=== PATIENT | male | born 1995 | race Caucasian/White ===

== ENCOUNTER 2016-12-04 23:04 | Emergency (ER) | payer OTHER ==
[2016-12-04 23:08] VITALS: BP 144/95; PULSE 101; BMI 32.1
[2016-12-04] MEDS ORDERED: KETOROLAC TROMETHAMINE 60 MG/2 ML VIAL IVPUSH ONE (23:43)
[2016-12-04] MEDS ORDERED: diazePAM 5 MG TABLET PO ONE (23:44)
--- NOTE | 2016-12-04 23:44 | PDOC ---
History of Present Illness - General Chief Complaint: Injury Stated Complaint: INJURY Time Seen by Provider: 12/04/16 23:16 - History of Present Illness Initial Comments: 12/04/16 23:44 CHIEF COMPLAINT: HISTORY OF PRESENT ILLNESS: 21 yo M with hx of opiate abuse presents to ED with back pain x 2 weeks, worse today after lifting weights. Patient states he has a history of this back pain that "gets really bad sometimes." He reports the pain is localized to the left lower back and radiates down his left leg. Patient denies any loss of sensation or numbness to his legs bilaterally, denies any loss of bowel or bladder function. No recent travel or sick contacts. PAST MEDICAL HISTORY: Denies past medical history FAMILY HISTORY: Denies SOCIAL HISTORY: Hx of opiate abuse SURGICAL HISTORY: Denies ALLERGIES: No known drug allergies REVIEW OF SYSTEMS General/Constitutional: Denies fever or chills. Denies weakness, weight change. HEENT: Denies change in vision. Denies ear pain or discharge. Denies sore throat. Cardiovascular: Denies chest pain or shortness of breath. Respiratory: Denies cough, wheezing, or hemoptysis. Gastrointestinal: Denies nausea, vomiting, diarrhea or constipation. Denies rectal bleeding. Genitourinary: Denies dysuria, frequency, or change in urination. Musculoskeletal: Left lower back pain, radiating down leg. Skin and breasts: Denies rash or easy bruising. Neurologic: Denies headache, vertigo, loss of consciousness, or loss of sensation. PHYSICAL EXAM General Appearance: Well-appearing, appropriately dressed. No apparent distress , no intoxication. HEENT: EOMI, PERRLA, normal ENT inspection, normal voice, TMs normal, pharynx normal. No conjunctival pallor. No photophobia, scleral icterus. Neck: Supple. Trachea midline. No tenderness, rigidity, carotid bruit, stridor , lymphadenopathy, or thyromegaly. Respiratory/Chest: Lungs CTAB. No shortness of breath, chest tenderness, respiratory distress, accessory muscle use. No crackles, rales, rhonchi, stridor , wheezing, dullness Cardiovascular: RRR. S1, S2. No JVD, murmur, bradycardia, tachycardia. Vascular Pulses: Dorsalis-Pedis (R): 2+, Dorsalis-Pedis (L): 2+ Gastrointestinal/Abdominal: Normal bowel sounds. Abdomen soft, non-distended. No tenderness or rebound tenderness. No organomegaly, pulsatile mass, guarding , hernia, hepatomegaly, splenomegaly. Lymphatic: No adenopathy, tenderness. Musculoskeletal/Extremities: Normal inspection. FROM of all extremities, normal capillary refill. Pelvis Stable. No CVA tenderness. No tenderness to extremities, pedal edema, swelling, erythema or deformity. Integumentary: Appropriate color, dry, warm. No cyanosis, erythema, jaundice or rash Neurologic: skinner pelts II-XII intact. Fully oriented, alert. Appropriate mood/affect. Motor strength 5/5. No appreciable EOM palsy, facial droop or sensory deficit. Past History - Past Medical History Allergies/Adverse Reactions: Allergies Allergy/AdvReac Type Severity Reaction Status Date / Time No Known Allergies Allergy Verified 12/04/16 23:06 Home Medications: Ambulatory Orders Cyclobenzaprine HCl [Flexeril 10 mg] 10 mg PO TID PRN #12 tablet 12/05/16 Naproxen 250 mg PO BID #20 tablet 12/05/16 Psychiatric Problems: Yes (suicide attempts) - Psycho/Social/Smoking Cessation Hx Anxiety: No Suicidal Ideation: No Smoking Status: Yes Smoking History: Current every day smoker Number of Cigarettes Smoked Daily: 2 Information on smoking cessation initiated: No Hx Alcohol Use: No Substance Use Type: None Trauma Specific PMHX - Complaint Specific PMHX Back Injury: Yes *Physical Exam - Vital Signs Last Vital Signs Temp Pulse Resp BP Pulse Ox 101 H 18 144/95 100 12/04/16 23:06 12/04/16 23:06 12/04/16 23:06 12/04/16 23:06 Medical Decision Making - Medical Decision Making 12/05/16 00:52 21 yo M with hx of opiate abuse presents to ED with left lower back pain radiating to L leg. -Toradol 60 mg IM Patient reassessed, states his lower back pain is better but he still has a lot of pain to his left side. -UA -Cyclobenzaprine Patient's pain most likely musculoskeletal in nature due to recent physical activity and sudden onset after specified activity. Will discharge to home with muscle relaxant and NSAIDs. -naproxen 250 bid -cyclobenzaprine 10 mg qhs PRN muscle spasm Advised patient to take medication as prescribed and f/u with orthopedics for possible MRI. Advised patient of signs and symptoms for return to ER; patient verbalized understanding and agrees to plan. *DC/Admit/Observation/Transfer Diagnosis at time of Disposition: Sciatica of left side Back strain Qualifiers: Encounter type: initial encounter Qualified Code(s): S39.012A - Strain of muscle, fascia and tendon of lower back, initial encounter - Discharge Dispostion Disposition: HOME Condition at time of disposition: Stable Admit: No - Prescriptions Prescriptions: Cyclobenzaprine HCl [Flexeril 10 mg] 10 mg PO TID PRN #12 tablet PRN Reason: Back Pain Naproxen 250 mg PO BID #20 tablet - Referrals Referrals: Mt Blanco MD [Staff Physician] - - Patient Instructions Printed Discharge Instructions: DI for Back Pain With Sciatica Additional Instructions: As discussed, you need to follow up orthopedics for a possible MRI for further evaluation and management of your back pain. If you experience any numbness or loss of sensation to your legs, loss of bowel or bladder function, nausea, vomiting, diarrhea or any new or worsening symptoms, please return to the ER.
[2016-12-04] MEDS ORDERED: KETOROLAC TROMETHAMINE 60 MG/2 ML VIAL IM ONE (23:57)
--- NOTE | 2016-12-04 23:58 | PDOC ---
[id number] 100 12/04/16 23:06 12/04/16 23:06 12/04/16 23:06 12/04/16 23:06 - Physical Exam Comments: 12/04/16 23:58 The patient was examined by RADHA Mcclain under my direct supervision. I personally evaluated the patient. I concur with the above findings and the plan of care. *DC/Admit/Observation/Transfer Diagnosis at time of Disposition: Sciatica of left side, Back strain - Prescriptions Prescriptions: Cyclobenzaprine HCl [Flexeril 10 mg] 10 mg PO TID PRN #12 tablet PRN Reason: Back Pain Naproxen 250 mg PO BID #20 tablet - Referrals Referrals: Mt Blanco MD [Staff Physician] - - Patient Instructions Printed Discharge Instructions: DI for Back Pain With Sciatica Additional Instructions: As discussed, you need to follow up orthopedics for a possible MRI for further evaluation and management of your back pain. If you experience any numbness or loss of sensation to your legs, loss of bowel or bladder function, nausea, vomiting, diarrhea or any new or worsening symptoms, please return to the ER.
[2016-12-05] MEDS ORDERED: KETOROLAC TROMETHAMINE 60 MG/2 ML VIAL ONE
[2016-12-05] MEDS ORDERED: CYCLOBENZAPRINE HCL 10 MG TABLET (FP) PO ONE (00:35)
[2016-12-05] MEDS ORDERED: CYCLOBENZAPRINE HCL 10 MG TABLET (FP) ONE (00:41)
[2016-12-05 00:51] LABS: URINE APPEARANCE CLEAR; URINE BILIRUBIN NEGATIVE (NEGATIVE); URINE BLOOD NEGATIVE (NEGATIVE); URINE COLOR YELLOW; URINE GLUCOSE (UA) NEGATIVE (NEGATIVE); URINE KETONE NEGATIVE (NEGATIVE); URINE LEUK ESTERASE NEGATIVE (NEGATIVE); URINE NITRITE NEGATIVE (NEGATIVE); URINE PROTEIN NEGATIVE (NEGATIVE); URINE UROBILINOGEN NEGATIVE E.U./dl (0.2-1.0)
== END 2016-12-05 01:09 | disposition home or self-care (01) ==
LOC: JER 23:04
PROC: 3E0333Z Introduction of Anti-inflammatory into Peripheral Vein, Percutaneous Approach (ICD-10-PCS; principal; 2016-12-04)
DX: M54.32 Sciatica, left side (principal); S39.012A Strain of muscle, fascia and tendon of lower back, initial encounter; F17.210 Nicotine dependence, cigarettes, uncomplicated; F11.90 Opioid use, unspecified, uncomplicated
CPT/HCPCS: 81003; 99282-25

== ENCOUNTER 2017-06-03 17:16 | Inpatient (IN) | payer OTHER ==
[2017-06-03 20:15] VITALS: BMI 28.8
--- NOTE | 2017-06-03 20:15 | HP ---
COWS - Scale Resting Pulse: 1= [place] 81-100 Sweatin= Chills/Flushing Restless Observation: 3= Extraneous Movement Pupil Size: 0= Normal to Room Light Bone or Joint Aches: 2= Severe Diffuse Aches Runny Nose/ Eye Tearin= Runny Nose/Eyes GI Upset > 30mins: 2= Nausea/Diarrhea Tremor Observation: 2= Slight Tremor Visible Yawning Observation: 0= None Anxiety or Irritability: 2=Irritable/Anxious Goose Flesh Skin: 0=Smooth Skin COWS Score: 15 Admission [facility] Chief Complaint: withdrawal sx Allergies/Adverse Reactions: Allergies Allergy/AdvReac Type Severity Reaction Status Date / Time No Known Allergies Allergy Verified 06/03/17 20:04 History of Present Illness: 21 years old male with long history of heroin nicotine dependence, has gerd and chronic back and right knee pain and depression is admitted to detox Exam Limitations: No Limitations - Ebola screening Have you traveled outside of the country in the last 21 days: No (N) Have you had contact with anyone from an Ebola affected area: No Have you been sick,other than usual withdrawal symptoms: No Do you have a fever: No - Review of Systems Constitutional: Changes in sleep, Weight Stable EENT: reports: No Symptoms Reported Respiratory: reports: No Symptoms reported Cardiac: reports: No Symptoms Reported GI: reports: Nausea, Poor Fluid Intake, Indigestion, Abdominal cramping : reports: No Symptoms Reported Musculoskeletal: reports: Back Pain, Joint Pain, Muscle Pain, Neck Pain Integumentary: reports: No Symptoms Reported Neuro: reports: Tremors Endocrine: reports: No Symptoms Reported Hematology: reports: No Symptoms Reported Psychiatric: reports: Judgement Intact, Orientated x3, Depressed Other Systems: Reviewed and Negative Patient History - Patient Medical History Hx Anemia: No Hx Asthma: No Hx Chronic Obstructive Pulmonary Disease (COPD): No Hx Cancer: No Hx Cardiac Disorders: No Hx Congestive Heart Failure: No Hx Hypertension: No Hx Hypercholesterolemia: No Hx Pacemaker: No HX Cerebrovascular Accident: No Hx Seizures: No Hx Dementia: No Hx Diabetes: No Hx Gastrointestinal Disorders: Yes Hx Liver Disease: No Hx Genitourinary Disorders: No Hx Sexually Transmitted Disorders: No Hx Renal Disease (ESRD): No Hx Thyroid Disease: No Hx Human Immunodeficiency Virus (HIV): No Hx Hepatitis C: No Hx Depression: Yes Hx Suicide Attempt: Yes (cut self ) Hx Bipolar Disorder: No Hx Schizophrenia: No - Patient Surgical History Past Surgical History: Yes Other Surgical History: right knee skin graft 2004 Anesthesia Reaction: No - PPD History Previous Implant?: Yes Documented Results: Negative w/o proof Implanted On Prior [facility] Admission?: No PPD to be Administered?: Yes - Smoking Cessation Smoking history: Current every day smoker Have you smoked in the past 12 months: Yes Aproximately how many cigarettes per day: 15 Cigars Per Day: 0 Hx Chewing Tobacco Use: No Initiated information on smoking cessation: Yes 'Breaking Loose' booklet given: 06/03/17 - Substance & Tx. History Hx Alcohol Use: No Hx Substance Use: Yes Substance Use Type: Heroin Hx Substance Use Treatment: Yes (08/2016 [facility]) - Substances Abused Heroin Route: Inhalation Frequency: Daily Amount used: 15 bags Age of first use: 20 Date of Last Use: 06/03/17 Family Disease History - Family Disease History Family Disease History: Diabetes: Grandparent, Heart Disease: Grandparent Admission Physical Exam S - Vital Signs Vital Signs: Vital Signs - 24 hr 06/03/17 18:25 Temperature 98 F Pulse Rate 86 Respiratory 18 Rate Blood Pressure 136/80 - Physical General Appearance: Yes: Nourished, Appropriately Dressed, Mild Distress, Tremorous, Irritable, Sweating, Anxious HEENTM: Yes: Hearing grossly Normal, Normal ENT Inspection, Normocephalic, Normal Voice Respiratory: Yes: Chest Non-Tender, Lungs Clear, Normal Breath Sounds, No Respiratory Distress, No Accessory Muscle Use Neck: Yes: Supple, Trachea in good position Breast: Yes: Breasts Symetrical Cardiology: Yes: Regular Rhythm, Regular Rate, S1, S2 Abdominal: Yes: Non Tender, Soft, Increased Bowel Sounds Genitourinary: Yes: Within Normal Limits Back: Yes: Normal Inspection Musculoskeletal: Yes: full range of Motion, Gait Steady, Back pain, Muscle Pain Extremities: Yes: Normal Inspection, Normal Range of Motion, Non-Tender, Tremors Neurological: Yes: Fully Oriented, Alert, Motor Strength 5/5, Normal Response, Depressed Affect Integumentary: Yes: Warm Lymphatic: Yes: Within Normal Limits - Diagnostic (1) Opioid dependence with withdrawal Current Visit: Yes Status: Acute (2) Chronic back pain Current Visit: Yes Status: Chronic Qualifiers: Back pain location: low back pain Back pain laterality: left Sciatica presence: with sciatica Sciatica laterality: sciatica of left side Qualified Code(s): M54.42 - Lumbago with sciatica, left side; G89.29 - Other chronic pain (3) Chronic pain of right knee Current Visit: Yes Status: Chronic (4) Nicotine dependence Current Visit: Yes Status: Acute Qualifiers: Nicotine product type: cigarettes Substance use status: in withdrawal Qualified Code(s): F17.213 - Nicotine dependence, cigarettes, with withdrawal (5) GERD (gastroesophageal reflux disease) Current Visit: Yes Status: Chronic Qualifiers: Esophagitis presence: without esophagitis Qualified Code(s): K21.9 - Gastro-esophageal reflux disease without esophagitis (6) Depression (emotion) Current Visit: Yes Status: Suspected Qualifiers: Depression Type: dysthymia Qualified Code(s): F34.1 - Dysthymic disorder Cleared for Admission [facility] - Detox or Rehab [facility] Level of Care: Medically Managed Detox Regimen/Protocol: Methadone [facility] Breath Alcohol Content Breath Alcohol Content: 0 Vital Signs - Height Height: 5 ft 9 in - Weight Weight: 195 lb Weight Measurement Method: Standing Scale Body Mass Index (BMI): 28.8 - Bowel Function Bowel Movement: Yes Urine Drug Screen - Results Drug Screen Negative: No Urine Drug Screen Results: OPI-Opiates
[2017-06-03] MEDS ORDERED: ACETAMINOPHEN 325 MG TABLET (FP) PO PRN (20:18)
[2017-06-03] MEDS ORDERED: guaiFENesin/D-METHORPHAN HB 10 ML UNIT-DOSE CUPS PO PRN (20:18)
[2017-06-03] MEDS ORDERED: MENTHOL/PHENOL 1 EACH UD MM PRN (20:18)
[2017-06-03] MEDS ORDERED: NICOTINE POLACRILEX 4 MG GUM BC PRN (20:18)
[2017-06-03] MEDS ORDERED: P-EPHED 60MG/TRIPROLIDI 2.5MG TABLET PO PRN (20:18)
[2017-06-03] MEDS ORDERED: diphenhydrAMINE HCL 50 MG CAPSULE PO PRN (20:18)
[2017-06-03] MEDS ORDERED: MAGNESIUM HYDROX 2400MG/30ML ORAL SUSPENSION 30 ML CUP PO PRN (20:18)
[2017-06-03] MEDS ORDERED: MAGNESIUM CITRATE 300 ML BOTTLE PO PRN (20:18)
[2017-06-03] MEDS ORDERED: METHADONE HCL 10 MG TABLET (FOR DETOX USE ONLY) PO ONE ×2 (20:18→23:00)
[2017-06-03] MEDS ORDERED: LOPERAMIDE HCL 2 MG CAPSULE PO PRN (20:18)
[2017-06-03] MEDS ORDERED: MAG HYDROX/AL HYDROX/SIMETH 30 ML UNIT-DOSE CUP PO PRN (20:18)
[2017-06-03] MEDS: diazePAM 5 MG TABLET PO PRN (21:03)
[2017-06-03] MEDS: RANITIDINE HCL 150 MG TABLET (FP) PO SCH (22:20)
[2017-06-03] MEDS: THIAMINE HCL 100 MG TABLET (FP) PO SCH (22:21)
[2017-06-03] MEDS: CYCLOBENZAPRINE HCL 10 MG TABLET (FP) PO PRN (22:25)
[2017-06-04] MEDS: diazePAM 5 MG TABLET PO PRN ×5 (02:25→22:10)
[2017-06-04] MEDS: CYCLOBENZAPRINE HCL 10 MG TABLET (FP) PO PRN ×2 (06:25→14:39)
[2017-06-04 09:40] LABS: MCH 30.4 pg (25.7-33.7); MCHC 34.1 g/dl (32.0-35.9); MEAN CELL VOLUME 89.4 fl (80-96); MEAN PLT VOLUME 8.4 fl (7.5-11.1); PLATELET COUNT 265 K/MM3 (134-434); RDW 12.6 % (11.9-15.9); WHITE BLOOD COUNT 9.2 K/mm3 (4.0-10.0)
[2017-06-04 09:56] LABS: ALBUMIN 4.2 g/dl (3.4-5.0); ALK PHOS 70 U/L (45-117); ANION GAP 7 (8-16); BILIRUBIN,TOTAL 0.8 mg/dL (0.2-1.0); CALCIUM 9.3 mg/dL (8.5-10.1); CO2 29 mmol/L (21-32); CREATININE 0.9 mg/dL (0.7-1.3); GLUCOSE,RANDOM 109 mg/dL (74-106); SGOT/AST 45 U/L (15-37); SGPT/ALT 100 U/L (12-78); TOT PROT 7.4 g/dl (6.4-8.2)
[2017-06-04] MEDS ORDERED: METHADONE HCL 10 MG TABLET (FOR DETOX USE ONLY) PO ONE (10:00)
--- NOTE | 2017-06-04 10:24 | EKG ---
Test Reason : Blood Pressure : / mmHG Vent. Rate : 085 BPM Atrial Rate : 085 BPM P-R Int : 126 ms QRS Dur : 088 ms QT Int : 346 ms P-R-T Axes : 052 065 009 degrees QTc Int : 411 ms NORMAL SINUS RHYTHM NORMAL ECG WHEN COMPARED WITH ECG OF 30-JUL-2016 00:17, NO SIGNIFICANT CHANGE WAS FOUND Confirmed by ERIKA OLIVO MD ([id number]) on 06/04/2017 10:24:33 AM Referred By: Confirmed By:ERIKA OLIVO MD
[2017-06-04] MEDS: LIDOCAINE 5% TOPICAL PATCH TP SCH (10:38)
[2017-06-04] MEDS: PRENATAL VITAMINS W/ FOLIC ACID TABLET (FP) PO SCH (10:38)
[2017-06-04] MEDS: RANITIDINE HCL 150 MG TABLET (FP) PO SCH ×2 (10:38→22:10)
[2017-06-04] MEDS: NICOTINE 21 MG/24 HOURS TOPICAL PATCH TD SCH (10:39)
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
--- NOTE | 2017-06-04 12:44 | PN ---
S COWS - Scale Resting Pulse: 0= [place] 80 or Below Sweatin= Chills/Flushing Restless Observation: 3= Extraneous Movement Pupil Size: 2= Moderately Dilated Bone or Joint Aches: 4=Acute Joint/Muscle Pain Runny Nose/ Eye Tearin= None GI Upset > 30mins: 1= Stomach Cramp Tremor Observation of Outstretched Hands: 2= Slight Tremor Visible Yawning Observation: 1= 1-2x During Session Anxiety or Irritability: 2=Irritable/Anxious Goose Flesh Skin: 0=Smooth Skin COWS Score: 16 [facility] Progress Note (SOAP) Subjective: ANXIETY,TREMORS, SWEATS,MUSCLE ACHES, FATIGUE, INTERMITTENT SLEEP. Objective: 06/04/17 12:42 Vital Signs Temperature 97.2 F L 06/04/17 10:01 Pulse Rate 66 06/04/17 10:01 Respiratory Rate 18 06/04/17 10:01 Blood Pressure 132/79 06/04/17 10:01 O2 Sat by Pulse Oximetry (%) Laboratory Last Values WBC 9.2 K/mm3 (4.0-10.0) D 06/04/17 07:00 RBC 4.67 M/mm3 (4.00-5.60) 06/04/17 07:00 Hgb 14.2 GM/dL (11.7-16.9) 06/04/17 07:00 Hct 41.8 % (35.4-49) 06/04/17 07:00 MCV 89.4 fl (80-96) 06/04/17 07:00 MCH 30.4 pg (25.7-33.7) 06/04/17 07:00 MCHC 34.1 g/dl (32.0-35.9) 06/04/17 07:00 RDW 12.6 % (11.9-15.9) 06/04/17 07:00 Plt Count 265 K/MM3 (134-434) 06/04/17 07:00 MPV 8.4 fl (7.5-11.1) 06/04/17 07:00 Sodium 138 mmol/L (136-145) 06/04/17 07:00 Potassium 3.7 mmol/L (3.5-5.1) 06/04/17 07:00 Chloride 102 mmol/L (98-107) 06/04/17 07:00 Carbon Dioxide 29 mmol/L (21-32) 06/04/17 07:00 Anion Gap 7 (8-16) L 06/04/17 07:00 BUN 11 mg/dL (7-18) 06/04/17 07:00 Creatinine 0.9 mg/dL (0.7-1.3) 06/04/17 07:00 Creat Clearance w eGFR > 60 (>60) 06/04/17 07:00 Random Glucose 109 mg/dL (74-106) H 06/04/17 07:00 Calcium 9.3 mg/dL (8.5-10.1) 06/04/17 07:00 Total Bilirubin 0.8 mg/dL (0.2-1.0) D 06/04/17 07:00 AST 45 U/L (15-37) H D 06/04/17 07:00 ALT 100 U/L (12-78) H D 06/04/17 07:00 Alkaline Phosphatase 70 U/L (45-117) 06/04/17 07:00 Total Protein 7.4 g/dl (6.4-8.2) 06/04/17 07:00 Albumin 4.2 g/dl (3.4-5.0) 06/04/17 07:00 RPR Titer Nonreactive (NONREACTIVE) 06/04/17 07:00 Assessment: 06/04/17 12:43 WITHDRAWAL SX Plan: CONTINUE DETOX
[2017-06-04] MEDS ORDERED: ZOLPIDEM TARTRATE 10 MG TABLET (PARK CARE ONLY) PO SCH (22:00)
[2017-06-04] MEDS ORDERED: LIDOCAINE PATCH REMOVAL MC SCH (22:00)
[2017-06-04] MEDS: THIAMINE HCL 100 MG TABLET (FP) PO SCH (22:10)
[2017-06-05] MEDS: diazePAM 5 MG TABLET PO PRN ×2 (02:30→06:39)
[2017-06-05] MEDS: CYCLOBENZAPRINE HCL 10 MG TABLET (FP) PO PRN (05:07)
[2017-06-05 08:21] VITALS: BP 129/81; PULSE 59; TEMP 97.4
[2017-06-05] MEDS ORDERED: METHADONE HCL 5 MG TABLET (FOR DETOX USE ONLY) PO ONE (10:00)
[2017-06-05] MEDS: LIDOCAINE 5% TOPICAL PATCH TP SCH (10:31)
[2017-06-05] MEDS: RANITIDINE HCL 150 MG TABLET (FP) PO SCH (10:32)
[2017-06-05] MEDS: PRENATAL VITAMINS W/ FOLIC ACID TABLET (FP) PO SCH (10:32)
[2017-06-05] MEDS: NICOTINE 21 MG/24 HOURS TOPICAL PATCH TD SCH (10:32)
--- NOTE | 2017-06-05 11:29 | DS ---
[facility] Detox Discharge Summary Admission Date: 06/03/17 Discharge Date: 06/05/17 - History Present History: Opioid Dependence Additional Comments: PT DECLINED TO CONTINUE/COMPLETE DETOX FOR PERSONAL REASONS/LACK OF INSIGHT. SPOKE TO PATIENT EXPLAINING THE NEED TO REMAIN IN TREATMENT AND SEEK SOBRIETY. PT HAS VERY LIMITED INSIGHT INTO HIS ADDICTION AND NOT READY FOR TREATMENT AT THIS TIME. PT IS ALERT O X 3. NAD. PT SIGNED OUT AMA. Pertinent Past History: GERD CHRONIC BACK PAIN - Physical Exam Results Vital Signs: Vital Signs Temperature 97.4 F L 06/05/17 05:00 Pulse Rate 59 L 06/05/17 05:00 Respiratory Rate 18 06/05/17 05:00 Blood Pressure 129/81 06/05/17 05:00 O2 Sat by Pulse Oximetry (%) Pertinent Admission Physical Exam Findings: WITHDRAWAL SX Laboratory Last Values WBC 9.2 K/mm3 (4.0-10.0) D 06/04/17 07:00 RBC 4.67 M/mm3 (4.00-5.60) 06/04/17 07:00 Hgb 14.2 GM/dL (11.7-16.9) 06/04/17 07:00 Hct 41.8 % (35.4-49) 06/04/17 07:00 MCV 89.4 fl (80-96) 06/04/17 07:00 MCH 30.4 pg (25.7-33.7) 06/04/17 07:00 MCHC 34.1 g/dl (32.0-35.9) 06/04/17 07:00 RDW 12.6 % (11.9-15.9) 06/04/17 07:00 Plt Count 265 K/MM3 (134-434) 06/04/17 07:00 MPV 8.4 fl (7.5-11.1) 06/04/17 07:00 Sodium 138 mmol/L (136-145) 06/04/17 07:00 Potassium 3.7 mmol/L (3.5-5.1) 06/04/17 07:00 Chloride 102 mmol/L (98-107) 06/04/17 07:00 Carbon Dioxide 29 mmol/L (21-32) 06/04/17 07:00 Anion Gap 7 (8-16) L 06/04/17 07:00 BUN 11 mg/dL (7-18) 06/04/17 07:00 Creatinine 0.9 mg/dL (0.7-1.3) 06/04/17 07:00 Creat Clearance w eGFR > 60 (>60) 06/04/17 07:00 Random Glucose 109 mg/dL (74-106) H 06/04/17 07:00 Calcium 9.3 mg/dL (8.5-10.1) 06/04/17 07:00 Total Bilirubin 0.8 mg/dL (0.2-1.0) D 06/04/17 07:00 AST 45 U/L (15-37) H D 06/04/17 07:00 ALT 100 U/L (12-78) H D 06/04/17 07:00 Alkaline Phosphatase 70 U/L (45-117) 06/04/17 07:00 Total Protein 7.4 g/dl (6.4-8.2) 06/04/17 07:00 Albumin 4.2 g/dl (3.4-5.0) 06/04/17 07:00 RPR Titer Nonreactive (NONREACTIVE) 06/04/17 07:00 Hepatitis C Antibody <0.1 s/co ratio (0.0-0.9) 06/03/17 07:00 UA RESULT STILL PENDING AT THIS TIME. - Treatment Hospital Course: Discharged Condition Good - Medication Discharge Medications: Ambulatory Orders Cyclobenzaprine HCl [Flexeril 10 mg] 10 mg PO TID PRN #12 tablet 12/05/16 Naproxen 250 mg PO BID #20 tablet 12/05/16 - Diagnosis (1) Opioid dependence with withdrawal Status: Acute (2) Chronic back pain Status: Chronic Qualifiers: Back pain location: low back pain Back pain laterality: left Sciatica presence: with sciatica Sciatica laterality: sciatica of left side Qualified Code(s): M54.42 - Lumbago with sciatica, left side; G89.29 - Other chronic pain (3) Chronic pain of right knee Status: Chronic (4) GERD (gastroesophageal reflux disease) Status: Chronic Qualifiers: Esophagitis presence: without esophagitis Qualified Code(s): K21.9 - Gastro-esophageal reflux disease without esophagitis (5) Sciatica of left side Status: Chronic - AMA Did Patient Leave Against Medical Advice: Yes (AMA)
[2017-06-05 16:43] LABS: URINE APPEARANCE CLEAR; URINE BILIRUBIN NEGATIVE (NEGATIVE); URINE BLOOD NEGATIVE (NEGATIVE); URINE COLOR STRAW; URINE GLUCOSE (UA) NEGATIVE (NEGATIVE); URINE KETONE NEGATIVE (NEGATIVE); URINE LEUK ESTERASE NEGATIVE (NEGATIVE); URINE NITRITE NEGATIVE (NEGATIVE); URINE PROTEIN NEGATIVE (NEGATIVE); URINE UROBILINOGEN NEGATIVE mg/dL (0.2-1.0)
[2017-06-06] MEDS ORDERED: METHADONE HCL 5 MG TABLET (FOR DETOX USE ONLY) PO ONE (10:00)
[2017-06-07] MEDS ORDERED: METHADONE HCL 10 MG TABLET (FOR DETOX USE ONLY) PO ONE (10:00)
[2017-06-08] MEDS ORDERED: METHADONE HCL 5 MG TABLET (FOR DETOX USE ONLY) PO ONE (06:00)
== END 2017-06-05 11:18 | disposition left against medical advice (07) | DRG 770 ==
LOC: YASAS 17:16 → Y3N 20:06
PROVIDERS: ADMIT Internal Medicine; ATTEND Internal Medicine
PROC: HZ2ZZZZ Detoxification Services for Substance Abuse Treatment (ICD-10-PCS; principal; 2017-06-03)
DX: F11.23 Opioid dependence with withdrawal (principal); F10.230 Alcohol dependence with withdrawal, uncomplicated; F17.210 Nicotine dependence, cigarettes, uncomplicated; F34.1 Dysthymic disorder; G47.00 Insomnia, unspecified; K21.9 Gastro-esophageal reflux disease without esophagitis; M54.42 Lumbago with sciatica, left side; G89.29 Other chronic pain; M25.562 Pain in left knee
CPT/HCPCS: 36415; 80053; 81003; 85027; 86593; 86803; 93005; 93010

== ENCOUNTER 2020-11-17 13:13 | Emergency (ER) | payer OTHER ==
[2020-11-17 13:27] VITALS: BP 157/90; PULSE 70; TEMP 98.1; BMI 31.0
[2020-11-17] MEDS ORDERED: KETOROLAC TROMETHAMINE 30 MG/1 ML VIAL IVPUSH ONE (14:08)
[2020-11-17] MEDS ORDERED: ONDANSETRON 4 MG/2 ML VIAL IVPUSH ONE (14:08)
[2020-11-17] MEDS ORDERED: SODIUM CHLORIDE 1,000 ML IV STA (14:08)
[2020-11-17] MEDS ORDERED: KETOROLAC TROMETHAMINE 30 MG/1 ML VIAL ONE (14:26)
[2020-11-17] MEDS ORDERED: ONDANSETRON 4 MG/2 ML VIAL ONE (14:26)
[2020-11-17 14:28] LABS: BASO % 0.5 % (0-2.0); EOS % 0.8 % (0-4.5); HEMATOCRIT 41.6 % (35.4-49); HEMOGLOBIN 13.8 GM/dL (11.7-16.9); LYMPH % 14.3 % (8-40); MCH 30.1 pg (25.7-33.7); MCHC 33.1 g/dl (32.0-35.9); MEAN CELL VOLUME 90.8 fl (80-96); MEAN PLT VOLUME 8.4 fl (7.5-11.1); MONO % 6.1 % (3.8-10.2); NEUT % 78.3 % (42.8-82.8); PLATELET COUNT 348 K/MM3 (134-434); RBC 4.58 M/mm3 (4.00-5.60); RDW 13.2 % (11.9-15.9); WHITE BLOOD COUNT 12.6 K/mm3 (4.0-10.0)
[2020-11-17 14:50] LABS: CHLORIDE 100 mmol/L (98-107); SODIUM 129 mmol/L (136-145)
[2020-11-17 14:51] LABS: CALCIUM 9.8 mg/dL (8.5-10.1)
[2020-11-17 14:52] LABS: ALBUMIN 3.9 g/dl (3.4-5.0); BLOOD UREA NITROGEN 16.3 mg/dL (7-18); CO2 31 mmol/L (21-32); GLUCOSE,RANDOM 94 mg/dL (74-106)
[2020-11-17 14:55] LABS: CREATININE 1.3 mg/dL (0.55-1.3)
[2020-11-17 14:56] LABS: BILIRUBIN,TOTAL 0.7 mg/dL (0.2-1)
[2020-11-17 14:57] LABS: TOT PROT 8.7 g/dl (6.4-8.2)
[2020-11-17 14:58] LABS: ALK PHOS 100 U/L (45-117)
[2020-11-17 14:59] LABS: ANION GAP -2 MMOL/L (8-16); SGOT/AST 141 U/L (15-37); SGPT/ALT 169 U/L (13-61)
[2020-11-17 15:01] LABS: POTASSIUM > 10.0 mmol/L (3.5-5.1)
[2020-11-17 16:06] LABS: POTASSIUM 4.4 mmol/L (3.5-5.1)
[2020-11-17 16:07] LABS: CALCIUM 9.8 mg/dL (8.5-10.1)
[2020-11-17 16:08] LABS: ALBUMIN 4.2 g/dl (3.4-5.0); BLOOD UREA NITROGEN 14.9 mg/dL (7-18)
[2020-11-17 16:11] LABS: CREATININE 1.4 mg/dL (0.55-1.3)
[2020-11-17 16:13] LABS: BILIRUBIN,TOTAL 0.5 mg/dL (0.2-1); TOT PROT 8.2 g/dl (6.4-8.2)
[2020-11-17] MEDS ORDERED: TAMSULOSIN HCL 0.4 MG CAP PO ONE (17:32)
[2020-11-17] MEDS ORDERED: TAMSULOSIN HCL 0.4 MG CAP ONE (17:49)
[2020-11-17 18:07] LABS: EPI CELLS 19 /uL (0-25.1); HYALINE CASTS 4 /uL (0-3.1); PH,URINE 5.5 (5.0-8.0); URINE APPEARANCE TURBID; URINE BACTERIA 106 /uL (0-1359); URINE BILIRUBIN 2+ (NEGATIVE); URINE COLOR ORANGE; URINE GLUCOSE (UA) NEGATIVE (NEGATIVE); URINE KETONE TRACE (NEGATIVE); URINE LEUK ESTERASE 1+ (NEGATIVE); URINE NITRITE NEGATIVE (NEGATIVE); URINE PROTEIN 2+ (NEGATIVE); URINE RBC 959 /uL (0-23.9); URINE WBC 60 /uL (0-25.8)
[2020-11-17 19:12] LABS: URINE CRYSTALS CALCIUM OXALATE /hpf
== END 2020-11-17 17:50 | disposition home or self-care (01) ==
LOC: JER 13:13
PROC: 3E0333Z Introduction of Anti-inflammatory into Peripheral Vein, Percutaneous Approach (ICD-10-PCS; principal; 2020-11-17)
PROC: 3E033GC Introduction of Other Therapeutic Substance into Peripheral Vein, Percutaneous Approach (ICD-10-PCS; 2020-11-17)
PROC: 3E0337Z Introduction of Electrolytic and Water Balance Substance into Peripheral Vein, Percutaneous Approach (ICD-10-PCS; 2020-11-17)
DX: N23 Unspecified renal colic (principal)
CPT/HCPCS: 36415; 74176-TC; 80053; 81003; 85025; 87086; 99285-25

== ENCOUNTER 2021-09-10 11:57 | Emergency (ER) | payer OTHER ==
[2021-09-10 12:27] VITALS: TEMP 98.6; BMI 29.5
[2021-09-10 13:41] LABS: ALBUMIN 4.9 g/dl (3.4-5.0); BILIRUBIN,TOTAL 0.7 mg/dl (0.2-1); CALCIUM 10.1 mg/dl (8.5-10); CREATININE 1.3 mg/dl (0.55-1.3); TOT PROT 8.4 g/dl (6.4-8.2)
[2021-09-10 13:49] LABS: EPITHELIAL CELLS FEW /hpf; URINE HYALINE CAST 0-1 /lpf; URINE MUCUS 1+
[2021-09-10 15:20] LABS: BASO % 0.3 % (0-2.0); EOS % 0.3 % (0-4.5); HEMATOCRIT 39.7 % (35.4-49); HEMOGLOBIN 13.6 GM/dL (11.7-16.9); LYMPH % 12.2 % (8-40); MCHC 34.4 g/dl (32.0-35.9); MEAN CELL VOLUME 90.3 fl (80-96); MEAN PLT VOLUME 8.7 fl (7.5-11.1); MONO % 7.8 % (3.8-10.2); NEUT % 79.4 % (42.8-82.8); PLATELET COUNT 324 10^3/uL (134-434); RDW 12.9 % (11.9-15.9); WHITE BLOOD COUNT 9.9 K/mm3 (4.0-10.0)
[2021-09-10 16:12] VITALS: BP 145/81; PULSE 75
== END 2021-09-10 17:21 | disposition home or self-care (01) ==
LOC: FER 11:57
PROC: 3E0333Z Introduction of Anti-inflammatory into Peripheral Vein, Percutaneous Approach (ICD-10-PCS; principal; 2021-09-10)
PROC: 3E033GC Introduction of Other Therapeutic Substance into Peripheral Vein, Percutaneous Approach (ICD-10-PCS; 2021-09-10)
DX: R11.2 Nausea with vomiting, unspecified (principal); M79.10 Myalgia, unspecified site; R30.0 Dysuria; N13.30 Unspecified hydronephrosis
CPT/HCPCS: 36415; 71046-TC-FY; 76775-TC; 80053; 81003; 81015; 85025; 87086; 87804; 99285-25; C9803; U0003; U0005

== ENCOUNTER 2024-04-06 10:30 | Inpatient (IN) | payer OTHER ==
[2024-04-06 12:02] LABS: BASO % 0.2 % (0-2.0); EOS % 2.1 % (0-4.5); HEMATOCRIT 40.5 % (35.4-49); HEMOGLOBIN 13.4 GM/dL (11.7-16.9); LYMPH % 10.3 % (8-40); MCH 29.3 pg (25.7-33.7); MEAN CELL VOLUME 88.7 fl (80-96); MEAN PLT VOLUME 7.7 fl (7.5-11.1); MONO % 10.7 % (3.8-10.2); NEUT % 76.7 % (42.8-82.8); PLATELET COUNT 276 10^3/uL (134-434); RBC 4.56 M/mm3 (4.00-5.60); RDW 13.6 % (11.9-15.9); WHITE BLOOD COUNT 13.2 K/mm3 (4.0-10.0)
[2024-04-06 12:36] LABS: POTASSIUM 4.4 mmol/L (3.5-5.1)
[2024-04-06 12:38] LABS: ALBUMIN 3.5 g/dl (3.4-5.0); BLOOD UREA NITROGEN 7.6 mg/dL (7-18); CALCIUM 9.2 mg/dL (8.5-10.1)
[2024-04-06 12:42] LABS: CREATININE 0.9 mg/dL (0.55-1.3)
[2024-04-06 12:43] LABS: BILIRUBIN,TOTAL 0.4 mg/dL (0.2-1); TOT PROT 7.2 g/dl (6.4-8.2)
[2024-04-06 13:26] LABS: ERYTHROCYTE SEDIMENTATION RATE 17 mm/hr (0-10)
[2024-04-06] MEDS ORDERED: PIPERACILLIN/TAZOB 4.5 GM 4.5 GM/100 ML BAG IVPB ONE (14:10)
[2024-04-06] MEDS: PIPERACILLIN/TAZOB 4.5 GM 4.5 GM in DEXTROSE 5%-WATER 100 ML IVPB ONE (14:20)
[2024-04-06] MEDS ORDERED: VANCOMYCIN 1 GRAM (PRE-DOCKED) 1,000 MG/250 ML BAG IVPB ONE (15:21)
[2024-04-06] MEDS: VANCOMYCIN 1,000 MG in DEXTROSE 5%-WATER - 250 ML IVPB ONE (15:29)
[2024-04-06] MEDS ORDERED: VANCOMYCIN PREMIX 1.5 GM 1,500 MG/300 ML BAG IVPB SCH ×2 (21:30→22:45)
[2024-04-06] MEDS ORDERED: HEPARIN NA (PORCINE) 5,000 UNITS/ML 1ML VIAL ONE (22:05)
[2024-04-06] MEDS: HEPARIN NA (PORCINE) 5,000 UNITS/ML 1ML VIAL SQ SCH (22:12)
[2024-04-06] MEDS: NICOTINE 14 MG/24 HOURS TOPICAL PATCH TD SCH (22:39)
[2024-04-07 01:45] VITALS: RESP 18; BMI 30.7
[2024-04-07] MEDS ORDERED: PIPERACILLIN/TAZOB 3.375 GM 3.375 GM in DEXTROSE 5%-WATER - 50 ML IVPB SCH (02:00)
[2024-04-07] MEDS: PIPERACILLIN/TAZOB 3.375 GM 3.375 GM in DEXTROSE 5%-WATER - 50 ML IVPB SCH (02:09)
[2024-04-07] MEDS: VANCOMYCIN PREMIX 1.5 GM 1,500 MG/300 ML BAG IVPB SCH (04:17)
[2024-04-07 10:24] LABS: HEMATOCRIT 37.6 % (35.4-49); HEMOGLOBIN 12.6 GM/dL (11.7-16.9); MCH 29.9 pg (25.7-33.7); MCHC 33.5 g/dl (32.0-35.9); MEAN CELL VOLUME 89.3 fl (80-96); MEAN PLT VOLUME 7.9 fl (7.5-11.1); PLATELET COUNT 277 10^3/uL (134-434); RBC 4.21 M/mm3 (4.00-5.60); RDW 13.5 % (11.9-15.9)
[2024-04-07 11:00] LABS: ERYTHROCYTE SEDIMENTATION RATE 55 mm/hr (0-10)
[2024-04-07 12:07] LABS: POTASSIUM 4.7 mmol/L (3.5-5.1)
[2024-04-07 12:10] LABS: BLOOD UREA NITROGEN 6.8 mg/dL (7-18); MAGNESIUM 2.3 mg/dL (1.8-2.4)
[2024-04-07 12:13] LABS: CREATININE 0.8 mg/dL (0.55-1.3); PHOSPHOROUS 3.4 mg/dL (2.5-4.9)
[2024-04-07 14:46] VITALS: BP 120/80; PULSE 71; TEMP 98.9
== END 2024-04-07 18:57 | disposition left against medical advice (07) | DRG 813 ==
LOC: JER 10:30 → JERBED 14:09 → J5S 04-07 01:56 → OBSVTOIN 04-07 10:13
PROVIDERS: ADMIT Internal Medicine
DX: T86.822 Skin graft (allograft) (autograft) infection (principal); L03.115 Cellulitis of right lower limb; L97.919 Non-pressure chronic ulcer of unspecified part of right lower leg with unspecified severity; D72.821 Monocytosis (symptomatic); J02.0 Streptococcal pharyngitis; D72.829 Elevated white blood cell count, unspecified; F14.10 Cocaine abuse, uncomplicated; F17.210 Nicotine dependence, cigarettes, uncomplicated; F11.23 Opioid dependence with withdrawal; Y83.8 Other surgical procedures as the cause of abnormal reaction of the patient, or of later complication, without mention of misadventure at the time of the procedure; R74.01 Elevation of levels of liver transaminase levels
CPT/HCPCS: 0241U-QW; 36415; 80048; 80053; 83036; 83735; 84100; 85025; 85027; 85651; 86140; 86308; 87070; 87186; 87205; 87651; 93005; 93010; 99285-25; G0378; J1644

== ENCOUNTER 2024-05-16 15:31 | Emergency (ER) | payer OTHER ==
[2024-05-16 15:44] VITALS: BP 116/60; PULSE 81; RESP 17; TEMP 98.1; BMI 31.0
[2024-05-16] MEDS ORDERED: diazePAM 5 MG TABLET ONE (17:55)
[2024-05-16] MEDS ORDERED: ACETAMINOPHEN 500 MG TABLET (FP) ONE (17:55)
[2024-05-16] MEDS ORDERED: LIDOCAINE 4% PATCH TP ONE (17:56)
[2024-05-16] MEDS: diazePAM 5 MG TABLET PO ONE (18:13)
[2024-05-16] MEDS: LIDOCAINE 5% TOPICAL PATCH TP ONE (18:13)
[2024-05-16] MEDS: ACETAMINOPHEN 500 MG TABLET (FP) PO ONE (18:13)
[2024-05-16] MEDS ORDERED: LIDOCAINE PATCH REMOVAL MC SCH (22:00)
== END 2024-05-16 19:48 | disposition home or self-care (01) ==
LOC: JER 15:31 → JERFT 15:31
DX: M25.512 Pain in left shoulder (principal); M54.50 Low back pain, unspecified; W01.198A Fall on same level from slipping, tripping and stumbling with subsequent striking against other object, initial encounter
CPT/HCPCS: 72100-TC-FY; 73030-TC-LT-FY; 99283-25